=== PATIENT | female | born 1950 | race African-American/Black ===

== ENCOUNTER 2017-03-01 07:32 | Emergency (ER) | payer MEDICARE ==
[~2017-03-01] VITALS: Ht 167.6 cm; Wt 70.0 kg
[2017-03-01] MEDS ORDERED: METF500T4 PO (07:54)
[2017-03-01] MEDS ORDERED: LISI-604 PO (07:54)
[2017-03-01 09:30] VITALS: BP 154/66
[2017-03-01 10:12] LABS: BASOPHILS % 0.5 % (0.0-2.0); EOSINOPHILS % 1.4 % (0.0-5.0); HEMATOCRIT. 39.6 % (36.0-48.0); HEMOGLOBIN. 12.9 g/dL (12.0-16.0); LYMPHOCYTES % 61.1 % (20.0-50.0); MEAN CORPUSCULAR VOLUME 95.4 fL (81.0-99.0); MEAN PLATELET VOLUME 7.8 fl (7.4-10.4); MONOCYTES % 6.7 % (2.0-8.0); NEUTROPHILS % 30.3 % (40.0-76.0); PLATELET 416 x1000/uL (130-400); RED BLOOD CELL COUNT 4.15 mill/uL (4.2-5.4); RED CELL DISTRIBUTION WIDTH 15.9 % (11.6-14.6)
[2017-03-01 10:15] LABS: CHLORIDE 105 mEq/L (98-107)
[2017-03-01 10:30] LABS: CARBON DIOXIDE 27 mEq/L (21-32)
[2017-03-01 10:46] LABS: CLARITY URINE CLEAR (CLEAR); COLOR URINE YELLOW (YELLOW); KETONES URINE NEGATIVE (NEGATIVE); LEUKOCYTE ESTERASE URINE NEGATIVE (NEGATIVE); NITRITE URINE NEGATIVE (NEGATIVE); OCCULT BLOOD URINE NEGATIVE (NEGATIVE); PH URINE 5.5 (4.5-8.0); PROTEIN URINE NEGATIVE (NEGATIVE); SPECIFIC GRAVITY URINE 1.019 (1.005-1.030); UROBILINOGEN URINE 0.2 E.U./dL (0.2-1.0)
== END 2017-03-01 12:04 | disposition home or self-care (01) ==
LOC: ER 08:14
DX: G89.29 Other chronic pain (principal); M54.5 Low back pain; R63.4 Abnormal weight loss; F41.9 Anxiety disorder, unspecified; F31.9 Bipolar disorder, unspecified; F12.10 Cannabis abuse, uncomplicated
CPT/HCPCS: 36415; 80053; 81003; 83690; 84443; 85025; 99284